=== PATIENT | male | born 2000 | race Caucasian/White ===

== ENCOUNTER 2024-07-21 17:32 | Emergency (ER) | payer OTHER, SELFPAY ==
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
[2024-07-21 18:11] VITALS: BP 137/86; PULSE 69; RESP 16; TEMP 36.7; O2SAT 100
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
[2024-07-21 21:40] VITALS: BP 124/85; PULSE 82; RESP 18; TEMP 36.8; O2SAT 100
== END 2024-07-21 21:46 | disposition home or self-care (01) ==
LOC: ANHED 21:34
PROVIDERS: Emergency Provider Physician Assistant
DX: S16.1XXA Strain of muscle, fascia and tendon at neck level, initial encounter (principal); V49.40XA Driver injured in collision with unspecified motor vehicles in traffic accident, initial encounter
CPT/HCPCS: 70450; 70486; 72125; 99284

== ENCOUNTER 2025-08-25 14:00 | Emergency (ER) | payer BC, SELFPAY ==
[2025-08-25 14:01] VITALS: BP 147/88; PULSE 82; RESP 16; TEMP 36.3; O2SAT 100
--- OUTSIDE RECORDS SUMMARY | 2025-08-25 14:04 | XMS_ITS | Clinical Summary ---
Author Organization [facility] Address [address] [place] [address] Care Team Providers Care Colorist Name Role Phone Raul Ghosh MD Primary Care Provider [phone] Source Comments [facility],non-owned Affiliates and Associated Physician Practices is amultiple site organization consisting of ambulatory clinics and hospital sitesin [place], [place], [place] and [place]. This disclosure is being madepursuant to the Care Everywhere program and may not contain all information available regarding this patient. Last updated 18.[facility] Allergies Active Allergy Reactions Criticality Noted Date Comments hot sauce [Other] 06/22/2015 Sulfa Drugs 06/22/2015 Medications * Be aware that medications may not be up to date on this document. Alwaysverify current medications with the patient. methylphenidate CR 36 MG tablet Take 36 mg by mouth every morning Active Active Problems No known active problems Social History Tobacco Use Types Packs/Day Years Used Date Smoking Tobacco: Never Alcohol Use Standard Drinks/Week Comments No 0 (1 standard drink = 0.6 oz pur e alcohol) Sex and Gender Information Value Date Recorded Sex Assigned at Not on file Legal Sex Male 3:12 PM CDT Gender Identity Not on file Sexual Orientation Not on file Last Filed Vital Signs Vital Sign Reading Time Taken Comments Blood Pressure - - Pulse - - Temperature - - Respiratory Rate - - Oxygen Saturation - - Inhaled Oxygen Concentration - - Weight 53.1 kg (117 lb 1 oz) 07/13/2015 3:20 PM CDT Height 176.7 cm (5' 9.57) 07/13/2015 3:20 PM CD T Body Mass Index 17.01 07/13/2015 3:20 PM CDT Plan of Treatment Health Maintenance Due Date Last Done Comments HIV SCREENING 2016 HPV VACCINE (1 - Male 3-dose series) 2016 MENINGOCOCCAL (Group B) VACC INE SHARED DECISION-MAKING (1 of 2 - Standard) 2017 HEPATITIS C SCREENING 08/24/2019 DTAP/TDAP/TD VACCINES (1 - Tdap) 2020 HEPATITIS B VACCINE (1 of 3 - 19+ 3-dose series) 2020 DEPRESSION SCREENING 11/02/2024 COVID-19 VACCINE (1 - 2023-2 5 season) 2025 INFLUENZA VACCINE (#1) 2025 ZOSTER VACCINE (1 of 2) 2051 HIB VACCINE Aged Out No longer eligi ble based on patient's age to complete this topic MENINGOCOCCAL GROUPS A/C/Y/W VACCINE Aged Out No longer eligible b ased on patient's age to complete this topic PNEUMOCOCCAL VACCINE Aged Out No long er eligible based on patient's age to complete [place] [address] [facility]LY [facility] Care Teams Colorist Relationship Specialty Start Date End Date Raul Ghosh MD [address] [id number] PCP - General Pediatrics 06/21/15
--- OUTSIDE RECORDS SUMMARY | 2025-08-25 15:44 | XMS_ITS | Clinical Summary ---
Author Organization [facility] Address [address] [place] [address] Care Team Providers Care Steam Box Operator Name Role Phone Raul Ghosh MD Primary Care Provider [phone] Source Comments [facility],non-owned Affiliates and Associated Physician Practices is amultiple site organization consisting of ambulatory clinics and hospital sitesin [place], [place], [place] and [place]. This disclosure is being madepursuant to the Care Everywhere program and may not contain all information available regarding this patient. Last updated 18.[facility] Allergies Active Allergy Reactions Criticality Noted Date [...] patient's age to complete [place] [address] [employer] Care Teams Steam Box Operator Relationship Specialty Start Date End Date Raul Ghosh MD [address] [phone] PCP - General Pediatrics 06/21/15
--- NOTE | 2025-08-25 16:10 | ED.GENADULT ---
HPI - General Adult General Chief complaint: Eye Problems Stated complaint: eye foreign body Time Seen by Provider: 08/25/25 15:35 History of Present Illness HPI narrative: This is a 24-year-old male presenting for possible foreign body in his eye. Patient was drilling out a lock use our safety glasses. He felt that he got metal shavings in his eye. He washed out his eye and thought he saw some at 12:00 p.m. over his iris. He has some eye irritation. No vision loss. No other injuries. Related Data Allergies Allergy/AdvReac Type Severity Reaction Status Date / Time Sulfa (Sulfonamide Allergy Hives Verified 08/25/25 14:04 Antibiotics) Exam Narrative: APPEARANCE: No apparent distress. Head: atraumatic. EYES: EOMI, fluorescein stain negative for uptake. No foreign bodies noted on the magnified exam. There is a slight corneal irregularity over the limbus at 12:00 p.m. No metal shavings noted. no foreign bodies noted and eversion of the lid. NOSE: Atraumatic NECK: Trachea midline RESPIRATORY: No increased rate of breathing CARDIOVASCULAR: RRR, ABDOMINAL: Non-distended MUSCULOSKELETAl: No obvious deformities NEURO: Alert. Moving 4/4 extremities SKIN:: Warm, dry. Normal color PSYCHIATRIC: Normal affect Course Vital Signs Vital signs: Vital Signs Temperature 97.4 F L 08/25/25 14:01 Pulse Rate 82 08/25/25 14:01 Respiratory Rate 16 08/25/25 14:01 Blood Pressure 147/88 H 08/25/25 14:01 Pulse Oximetry 100 08/25/25 14:01 Oxygen Delivery Room Air 08/25/25 14:01 Temperature 97.4 F L 08/25/25 14:01 Pulse Rate 82 08/25/25 14:01 Respiratory Rate 16 08/25/25 14:01 Blood Pressure 147/88 H 08/25/25 14:01 Pulse Oximetry 100 08/25/25 14:01 Oxygen Delivery Room Air 08/25/25 14:01 Medical Decision Making [facility] Narrative Medical decision making narrative: -Course: 24-year-old male presenting with possible foreign body in his eye. On exam there is a slight corneal abnormality at the limbus at 12:00 p.m. however there is no foreign body noted. No corneal abrasion on fluorescein stain. IOP 20. No foreign body in the recesses the eye with eversion of the lids. Suspect patient was able to remove the shaving before arrival the ED. Patient placed on Ocuflox in Ophthalmology follow-up. -DDX includes but is not limited to: Foreign body, corneal abrasion Vital Signs Vital Signs: Vital Signs Temperature 97.4 F L 08/25/25 14:01 Pulse Rate 82 08/25/25 14:01 Respiratory Rate 16 08/25/25 14:01 Blood Pressure 147/88 H 08/25/25 14:01 Pulse Oximetry 100 08/25/25 14:01 Oxygen Delivery Room Air 08/25/25 14:01 Temperature 97.4 F L 08/25/25 14:01 Pulse Rate 82 08/25/25 14:01 Respiratory Rate 16 08/25/25 14:01 Blood Pressure 147/88 H 08/25/25 14:01 Pulse Oximetry 100 08/25/25 14:01 Oxygen Delivery Room Air 08/25/25 14:01 Discharge Plan Discharge Clinical Impression: Eye irritation Patient Disposition: Home Condition: Stable Instructions: Antibiotic Form, Eye Foreign Body (ED) Additional Instructions: He was seen in the emergency department for possible foreign body. Pain please see right follow-up with an dimension warehouse supervisor in 48-72 hours. Please use the eyedrops as instructed. If you develop loss of vision or severe pain return to the ED for re-evaluation. Please call [facility] at [phone] to make an appointment. Patient Language: Cameroonian Prescriptions: New ofloxacin [Ocuflox] 0.3 % drops See Rx Instructions .ROUTE .COMPLEX Qty: 5 0RF Rx Instructions: put 1-2 drps into affected eye(s) every 2-4 h x 2 days, then 1-2 drps 4 times/day days 3-7 Follow-up/Referrals: PHYSICIAN,RECRUITMENT SPECIALIST [Primary Care Provider, Internal Medicine]
== END 2025-08-25 16:40 | disposition home or self-care (01) ==
PROVIDERS: Emergency Provider Emergency Medicine
DX: H57.89 Other specified disorders of eye and adnexa (principal)
CPT/HCPCS: 99283